=== PATIENT | female | born 1975 | race Native Hawaiian/Other Pacific Islander ===

== ENCOUNTER → 2017-09-29 | Outpatient (CLI) | payer OTHER ==
[~2017-09-29] MED LIST: ACIDOPHILUS PO; BACPOLTO30 TOP; BIRTH CONTROL PILL; CETI10 PO; ESOM20 PO; FLUT.05NI; HYDACE5 PO; LORA10 PO; LORA10ER PO; NEBI5 PO; ONDA4ODT MM; OXYACE5T PO; PROM25 PO; Percocet 5-3251 EACH PO; Prilosec20 MG PO
== END ==
LOC: LAB SHORT 09:00 → LAB 09:00
DX: N39.0 Urinary tract infection, site not specified (principal)
CPT/HCPCS: 87077; 87086; 87186

== ENCOUNTER → 2017-10-30 | Outpatient (CLI) | payer OTHER ==
[2017-11-02 23:10] LABS: CHLAMYDIA TRACHOMATIS, NAA Negative (Negative); NEISSERIA GONORRHOEAE, NAA Negative (Negative)
== END ==
LOC: LAB 17:06 → LAB SHORT 17:06
PROVIDERS: Registered Nurse Community Health
DX: Z11.3 Encounter for screening for infections with a predominantly sexual mode of transmission (principal)
CPT/HCPCS: 87070; 87205; 87491; 87591

== ENCOUNTER → 2022-04-05 | Outpatient (CLI) | payer OTHER | END | disposition home or self-care (01) | LOC: LAB SHORT 09:00 | DX: N39.0 Urinary tract infection, site not specified (principal) | CPT/HCPCS: 87077; 87086; 87186 ==